=== PATIENT | female | born 1995 | race African-American/Black ===

== ENCOUNTER 2017-08-19 13:29 | Emergency (ER) | payer OTHER, SELFPAY ==
[2017-08-19 14:06] LABS: #Basophils 0.1 thou/uL (0.0-0.2); #Eosinphils 0.1 thou/uL (0.0-0.7); #Lymphocytes 2.8 thou/uL (1.20-3.40); #Monocytes 0.8 thou/uL (0.11-0.59); %Basophils 1.2 % (0.0-1.0); %Eosinophils 0.7 % (0.0-10.0); %Lymphocytes 32.3 % (28.0-48.0); %Monocytes 8.8 % (0.0-4.0); %Neutrophils 57.1 % (31.0-61.0); Hemoglobin 11.9 g/dL (12.0-16.0); Mean Corpuscular HGB CONC 30.8 g/dL (32.0-36.0); Mean Corpuscular Hemoglobin 26.3 pg (25.0-35.0); Mean Corpuscular Volume 85.4 fl (77.0-87.0); Mean Platelet Volume 8.5 fL (7.4-10.4); Platelet Count 321 thou/uL (130-400); RBC Distribution Width 14.2 % (11.5-14.5); Red Blood Cell (RBC) Count 4.52 mill/uL (4.00-5.20); White Blood Cell (WBC) Count 8.7 thou/uL (4.8-10.8)
[2017-08-19 14:28] LABS: ALT (SGPT) 7 U/L (8-55); AST (SGOT) 16 U/L (5-34); Acetaminophen Less than 6.0 mcg/mL (10.0-30.0); Albumin 4.5 g/dL (3.5-5.0); Alcohol Less than 10 mg/dL (Less than 10); Alkaline Phosphatase 61 U/L (40-150); Anion Gap 13 mmol/L (10-20); BUN (Urea Nitrogen) 5 mg/dL (7.0-18.7); Bilirubin, Total 0.4 mg/dL (0.2-1.2); CK (CPK) 121 U/L (29-168); Calc. Creatinine Clearance 0 mL/min (70-130); Calcium 9.7 mg/dL (7.8-10.44); Carbon Dioxide 23 mmol/L (22-29); Chloride 106 mmol/L (98-107); Estimated GFR-MDRD Greater than 90; Globulin 3.5 g/dL (2.4-3.5); Glucose 90 mg/dL (70-105); Potassium 3.4 mmol/L (3.5-5.1); Salicylate Less than 8.0 mg/dL (15.0-30.0); Sodium 139 mmol/L (136-145)
[2017-08-19 15:03] LABS: Bilirubin Negative (Negative); Blood, Urine Large (Negative); Clarity CLOUDY (Clear); Glucose, Urine (Dipstick) Negative (Negative); Leukocyte Small (Negative); Nitrite Negative (Negative); Protein, Urine (Dipstick) 30 mg/dL (Neg-Trace); Specific Gravity, Urine 1.016 (1.002-1.036); Urobilinogen 0.2 mg/dL (0.2-1.0); pH, Urine 5.5 (5.0-9.0)
[2017-08-19 15:04] LABS: Pregnancy Test - Urine (BHCG) Negative (Negative); Pregu Control Background? CLEAR/WHITE (CLR/WHITE); Pregu Control Bar Appear? YES (CONTROL BAR); Specific Gravity 1.016 (1.002-1.036)
[2017-08-19 15:06] LABS: Bacteria/HPF 1+ HPF (None Seen); Hyaline Casts/LPF 0-3 HYALINE CAST LPF (0-3 Hyaline); Pathc Cast-AUWi Flag 0.64 (0-2.49); RBC/HPF GREATER THAN 50-TNTC HPF (0-3)
[2017-08-19 15:15] LABS: Amphetamine Not Detected (NotDetected); Barbiturates Screen Not Detected (NotDetected); Benzodiazepine Screen Not Detected (NotDetected); Cocaine Metabolite Screen Not Detected (NotDetected); Medtox Control Line Valid? VALID (VALID); Medtox Reader # READER 4; Methadone Not Detected (NotDetected); Methamphetamine Not Detected (NotDetected); Opiate Screen Not Detected (NotDetected); Oxycodone Screen Not Detected (NotDetected); Phencyclidine (PCP) Not Detected (NotDetected); THC/Cannabinoid Screen Not Detected (NotDetected); Tricyclic Screen Not Detected (NotDetected)
[2017-08-19] MEDS ORDERED: Ciprofloxacin 500 MG TAB ONE (15:35)
[2017-08-19] MEDS ORDERED: Ziprasidone 20 MG CAP PO SCH (17:30)
[2017-08-19] MEDS ORDERED: Cephalexin 250 MG CAP ONE (21:06)
[2017-08-20] MEDS ORDERED: Cephalexin 250 MG CAP ONE (19:20)
== END 2017-08-19 20:23 | disposition home or self-care (01) ==
LOC: ERS 13:29
DX: F22 Delusional disorders (principal); F43.20 Adjustment disorder, unspecified
CPT/HCPCS: 36415; 80053; 80306; 80307; 81003; 81015; 81025; 82550; 84443; 85025; 99285